=== PATIENT | male | born 1980 | race Caucasian/White ===

== ENCOUNTER 2021-05-12 22:44 | Emergency (ER) | payer SELFPAY ==
[~2021-05-12] VITALS: Ht 187.9 cm; Wt 75.0 kg
--- NOTE | 2021-05-12 23:40 | ED EENT ---
History of Present Illness General Chief Complaint: Laceration Stated Complaint: DOG BITE TO FACE Source: patient Exam Limitations: no limitations (FAWN REED) History of Present Illness Date Seen by Provider: May 12, 2021 Time Seen by Provider: 23:12 Initial Comments This is Ronaldo a 40 yo male that presented to the ED via private vehicle with the chief complaint of dog bite to the face that occurred 3 hours ago. Pt stated t hat he was playing with a large dog when the canine tooth of the dog chapin and lacerated through the alarfacial groove. Pt is in no pain. He stated that the dog is up to date on vaccinations. 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 He stated that he received vaccinations after the procedure but did not return for follow-up boosters. Pt denies any other symptoms. Pt currently has an ankle monitor and will require a note for his PO. Timing/Duration: abrupt, this evening Severity: moderate Location: nose Prearrival Treatment: no prearrival treatment, nasal packing Associated Symptoms: denies symptoms (FAWN REED) Allergies and Home Medications Allergies Coded Allergies: No Known Drug Allergies (Unverified , 05/12/21) Review of Systems Review of Systems Constitutional: no symptoms reported Eyes: No Symptoms Reported Ears: No Symptoms Reported Nose: see HPI, other (bleeding from laceration both internal and external nostril) Mouth: no symptoms reported Throat: no symptoms reported Respiratory: no symptoms reported Cardiovascular: no symptoms reported Gastrointestinal: no symptoms reported Musculoskeletal: no symptoms reported Skin: other (laceration at alarfacial groove) Neurological: No Symptoms Reported Hematologic/Lymphatic: No Symptoms Reported Immunological/Allergic: see HPI (FAWN REED STUDENT) Past [id number]-Xtfkym Hx Patient Social History Tobacco Use?: No Use of E-Cig and/or Vaping dev: No Substance use?: No Alcohol Use?: No Pt feels they are or have been: No (FAWN REED) Immunizations Up To Date Influenza Vaccine Up-to-Date: No; Not Current (FAWN REED) Physical Exam Vital Signs Vital Signs - First Documented 05/12/21 23:02 Temp 36.6 Pulse 72 Resp 18 B/P (MAP) 155/98 (117) Pulse Ox 99 O2 Delivery Room Air (JAMES MONTALVO MD) Height, Weight, BMI Height: '" Weight: lbs. oz. kg; BMI Method: General Appearance: WD/WN, no apparent distress Eyes: bilateral eye normal inspection, bilateral eye PERRL Nose: dried blood, other (laceration) Mouth/Throat: normal mouth inspection, pharynx normal Neck: non-tender, supple, normal inspection Cardiovascular: normal peripheral pulses, regular rate, rhythm, no edema, no gallop, no murmur Respiratory: chest non-tender, lungs clear, normal breath sounds, no respiratory distress, no accessory muscle use Gastrointestinal: normal bowel sounds, non tender, soft Neurologic/Psychiatric: no motor/sensory deficits, alert, normal mood/affect, oriented x 3 Skin: normal color, warm/dry ([employer] MED STUDENT) Progress/Results/Core Measures Results/Orders My Orders Orders - JAMES MONTALVO MD Amoxicillin/Clavulanate Tablet (Augmenti (05/13/21 08:00) Let Solution (Let Solution) (05/13/21 00:00) Let Solution (Let Solution) (05/13/21 01:45) Let Solution (Let Solution) (05/13/21 01:39) Amoxicillin/Clavulanate Tablet (Augmenti (05/13/21 01:45) (JAMES MONTALVO MD) Medications Given in ED Current Medications Medications Dose Ordered Sig/Gerson Route Start Time Stop Time Status Last Admin Dose Admin Amoxicillin/ Clavulanate Potassium 875 mg ONCE ONCE PO 05/13/21 01:45 05/13/21 01:46 DC 05/13/21 01:48 875 MG Tetracaine/ Epinephrine/ Lidocaine 3 ml ONCE ONCE TOP 05/13/21 00:00 05/13/21 00:01 DC 05/13/21 00:26 3 ML Tetracaine/ Epinephrine/ Lidocaine 3 ml STK-MED ONCE .ROUTE 05/13/21 01:39 05/13/21 01:41 DC 05/13/21 01:41 3 ML (JAMES MONTALVO MD) Vital Signs/I&O 05/12/21 23:02 Temp 36.6 Pulse 72 Resp 18 B/P (MAP) 155/98 (117) Pulse Ox 99 O2 Delivery Room Air (JAMES MONTALVO MD) Departure Impression Primary Impression: Laceration of nose Qualified Codes: S01.21XA - Laceration without foreign body of nose, initial encounter Additional Impression: Dog bite Qualified Codes: W54.0XXA - Bitten by dog, initial encounter Disposition: 01 HOME, SELF-CARE Condition: Improved Departure-Patient Inst. Referrals: NO,LOCAL PHYSICIAN (PCP/Family) Primary Care Physician Patient Instructions: DOG BITE, Laceration Repair With Stitches (DC) Add. Discharge Instructions: Complete your antibiotics as prescribed. Do not miss any doses. Monitor the wound closely for signs of infection. If you notice increased swelling, increased redness, puslike drainage, or fever, return to care promptly for further evaluation. Keep the wound clean and dry except for normal showering. Try not to disrupt the wound inside your nose by blowing your nose or placing anything inside your nose. Allow it to heal uninterrupted. It may continue to ooze some blood and clearish colored liquid for a day or 2 until it scabs up. Keep the wounds clean and dry except for normal showering. You may allow soap and water to run over the wounds but do not scrub them directly. Do not submerge until after sutures are removed. Return to the ER in 5 to 7 days to have your sutures removed. Dr. Montalvo will be in the emergency room from 6 AM to 6 PM on May 18 and . Call with questions or concerns. Return to the ER if you have any further concerning symptoms. All discharge instructions reviewed with patient and/or family. Voiced understanding. Scripts Amoxicillin/Potassium Clav (Augmentin 500-125 Tablet) 1 Each Tablet 1 EACH PO BID, #14 TAB Prov: JAMES MONTALVO MD 05/13/21 [employer] RE[employer] MED STUDENT May 12, 2021 23:40 JAMES MONTALVO MD May 13, 2021 02:06
[2021-05-13] MEDS ORDERED: L.E.T. SOLUTION 3 ML SYR ONE (01:39)
[2021-05-13] MEDS ORDERED: AUGMENTIN 875 MG TAB (AMOXICILLIN/CLAVULANATE) PO ONE (01:45)
[2021-05-13] MEDS ORDERED: L.E.T. SOLUTION 3 ML SYR TOP ONE ×2 (01:45)
[2021-05-13] MEDS ORDERED: AMOX-355 PO (02:05)
[2021-05-13 02:18] VITALS: BP 137/71
[2021-05-13] MEDS ORDERED: AUGMENTIN 875 MG TAB (AMOXICILLIN/CLAVULANATE) PO SCH (08:00)
== END 2021-05-13 02:17 | disposition home or self-care (01) ==
LOC: ER 22:47
DX: S01.21XA Laceration without foreign body of nose, initial encounter (principal); W54.0XXA Bitten by dog, initial encounter
CPT/HCPCS: 12051